=== PATIENT | male | born 1980 | race Caucasian/White ===

== ENCOUNTER → 2017-08-20 | Day surgery (SDC) | payer BC ==
[~2017-08-20] MED LIST: Lactated Ringers 1,000 ML IV SCH; Propofol 200 MG/20 ML SDV IV ONE
--- NOTE | 2017-08-23 07:16 | OR ---
DATE OF OPERATION: 08/20/2017 PREOPERATIVE DIAGNOSIS: HEMATOCHEZIA. POSTOPERATIVE DIAGNOSIS: HEMATOCHEZIA. SURGEON: Mateus Dudley MD PROCEDURE: FULL-LENGTH COLONOSCOPY. ANESTHESIA: TEACHER'S AIDE. COMPLICATIONS: None. SPECIMEN: None. FINDINGS: 1. Full length colonoscopy. 2. Prominent internal and external hemorrhoids. RECOMMENDATIONS: The patient will be having a surgical followup in the near future for definitive care. INDICATIONS: The patient has had a couple year history of hematochezia, apparently from hemorrhoids and pain. We elected to proceed with a colonoscopy to rule out any other pathology. DESCRIPTION OF PROCEDURE: The patient was prepped and draped, placed in left lateral decubitus position. A lubricated Olympus colonoscope was inserted and easily and safely advanced to the cecum. Direct visualization of the ileocecal valve and appendiceal orifice was accomplished. We were able to intubate into the terminal ileum which was benign as well. Upon withdrawal, throughout the right transverse and descending colon, no abnormalities were seen. The sigmoid colon had no signs of any polyps, masses, ulcerations, or bleeding sites. No vascular abnormalities or signs of colitis. There were no diverticula. The rectal vault had prominent vascular tissue and internal hemorrhoids. No active or acute bleeding was seen. Retroflexion confirmed no perianal lesions. The patient does have a couple active external hemorrhoids which were tender and nonclotted. Air was suctioned. Scope was removed without complication. HAILEY/JOLANTA /[id number]
== END ==
LOC: CC.SDS 10:14
PROVIDERS: ATTEND Family Medicine
DX: K64.8 Other hemorrhoids (principal); K64.4 Residual hemorrhoidal skin tags; I10 Essential (primary) hypertension; E78.5 Hyperlipidemia, unspecified; E11.9 Type 2 diabetes mellitus without complications; Z88.0 Allergy status to penicillin; Z88.1 Allergy status to other antibiotic agents
CPT/HCPCS: 82962; J2704; J7120